=== PATIENT | female | born 1950 | race Caucasian/White ===

== ENCOUNTER 2025-08-31 06:50 | Outpatient (REF) | payer SELFPAY ==
[2025-08-31 05:43] LABS: MANUAL DIFF FLAG NO
[2025-08-31 06:02] LABS: Hematocrit 27.1 % (37.0-47.0); Hemoglobin 8.5 g/dl (12.0-16.0); Imm Gran Abs Auto 0.01 X10*3/uL (0.00-0.03); Imm Gran Pct Auto 0.2 % (0.0-0.4); Lymphocytes Absolute Auto 1.1 X10*3/uL (1.2-4.9); Mean Corpuscular HGB Conc 31.4 g/dl (31.0-35.0); Mean Corpuscular Hemoglobin 28.4 pg (27.0-33.0); Mean Corpuscular Volume 90.6 fL (80.0-98.0); NRBC Abs Auto 0.000 X10*3/uL (0.0-0.012); NRBC Pct Auto 0.0 /100WBC (0.0-0.2); Platelet Count 315 X10*3/uL (160-400); Red Blood Count 2.99 X10*6/uL (4.20-5.50); White Blood Count 6.5 X10*3/uL (4.8-10.8)
--- OUTSIDE RECORDS SUMMARY | 2025-08-31 06:53 | XMS_ITS ---
Author Organization [address] Address [address] [place] [phone] Phone Care Team Providers Care Plumber Cub Name Role Phone Vladimir Lucas Primary Care Provider [phone] Post Acute Care Coordination Status:Closed (Closed) Start date:08/27/2025 Enrollment date:08/27/2025 Enrollment reason:Post acute care coordination End date:08/28/2025 Close reason:Created in Error Continued Care and Services Coordination
--- OUTSIDE RECORDS SUMMARY | 2025-08-31 06:53 | XMS_ITS ---
Author Name [facility] Organization Unknown Care Team Organization Name Specialty Phone Email Start Date End Da te [facility] 06/03/2025 [facility] Vladimir Lucas Primary Care 03/23/2023 [facility] Vidal Peralta Primary Care 08/22/2022 024
--- OUTSIDE RECORDS SUMMARY | 2025-08-31 06:53 | XMS_ITS ---
Author Organization [address] Address [address] [place] [phone] Phone Care Team Providers Care Sales Product Specialist Name Role Phone Vladimir Lucas Primary Care Provider [phone] Post Acute Care Coordination Status:Ongoing (Active) Start date:08/28/2025 Enrollment date:08/28/2025 Enrollment reason:Post acute care coordination Case Team Name Relationship Phone Naty Cueto RN(Responsible Staff) Post Acute [employer] Continued Care and Services Coordination
--- OUTSIDE RECORDS SUMMARY | 2025-08-31 06:53 | XMS_ITS | Clinical Summary ---
Author Organization [facility] Address [address] [place] [address] Care Team Providers Care Magazine Hand Name Role Phone Vladimir Lucas PA-C Primary Care Provider Allergies Active Allergy Reactions Criticality Noted Date Comments Oxycodone 12/12/2018 Oxycodone-Acetaminophen 12/12/2018 Hydrocodone-Acetaminophen 12/12/2018 Medications Medication Sig Dispensed Refills Start Date End Date Status [place]-3 Fatty Acids (FISH OIL) 1000 MG CAPS Take 1,000 mg by mouth daily. 0 Active atorvastatin (LIPITOR) tablet 40 mg Take 40 mg by mouth daily. 0 Active diclofenac (VOLTAREN) 75 MG EC tablet Take 75 mg by mouth daily. 0 Active furosemide (LASIX) 40 MG tablet Take 40 mg by mouth daily. 0 Active gabapentin (NEURONTIN) 300 MG capsule Take 300 mg by mouth 2 (two) times a day. 0 Active metFORMIN (GLUCOPHAGE) tablet 1000 mg Take 1,000 mg by mouth 2 (two) times a day with meals. 0 Active metoprolol succinate (TOPROL-XL) 24 hr tablet 25 mg Take 25 mg by mouth 2 (two) times a day. 0 Active lisinopril (PRINIVIL,ZESTRIL) tablet 10 mg Take 10 mg by mouth daily. 0 Active aspirin 81 MG tablet Take 81 mg by mouth daily. 0 Active bimatoprost (LUMIGAN) 0.03 % ophthalmic drops 1 drop every night at bedtime. 0 Active docusate sodium (COLACE) 100 MG capsule Take 100 mg by mouth 2 (two) times a day. 0 Active CALCIUM CARBONATE-VITAMIN D PO Take by mouth daily. 0 Acti ve ferrous sulfate 325 (65 FE) MG tablet Take 325 mg by mouth every morning with breakfast. 0 Active vitamin C (ASCORBIC ACID) 500 MG tablet Take 500 mg by mouth daily. 0 Active glucose blood (ONETOUCH VERIO) test strip 1 each by Other route as needed for other. Use as instructed 0 Active Active Problems No known active problems Social History Tobacco Use Types Packs/Day Years Used Date Smoking Tobacco: Never Smokeless Tobacco: Never Alcohol Use Standard Drinks/Week Comments No 0 (1 standard drink = 0.6 oz pur e alcohol) Sex and Gender Information Value Date Recorded Sex Assigned at Not on file Gender Identity Not on file Sexual Orientation Not on file Job Start Date Occupation Industry Not on file Not on file Not on file Last Filed Vital Signs Vital Sign Reading Time Taken Comments Blood Pressure 154/56 01/21/2024 1:37 PM EDT Pulse 88 01/21/2024 1:37 PM EDT Temperature 36.1 C (97 F) 01/21/2024 1:37 PM EDT Respiratory Rate - - Oxygen Saturation 100% 01/21/2024 1:37 PM EDT Inhaled Oxygen Concentration - - Weight 105.5 kg (232 lb 9.6 oz) 019 11:19 AM EST Height - - Body Mass Index - - Plan of Treatment Health Maintenance Due Date Last Done Comments Hepatitis C Screening 1952 Depression Screening 1964 Preventative Health Evaluation 1970 Colon Cancer Screening (Colonoscopy) 1997 Breast Cancer Screening (Mammogram) 2002 Fall Risk Assessment 2017 Osteoporosis Screening (DEXA Scan) 2017 COVID-19 Vaccine ( season) 2025 01/25/2022, 07/21/2021, 06/21/2021, Additional history exists Influenza Vaccine (#1) 2025 3, 06/23/2022, 06/28/2021, Additional history exists DTap / Tdap / Td (2 - Td or Tdap) 07/13/2025 07/13/2015, 2003 RSV Adult > 60+ Yrs or (1 - 1-dose 75+ series) 2027 Shingrix-Zoster Vaccine Completed 04/27/2020, 11/19 Pneumococcal Vaccine Completed 08/03/2021, 08/06/2017, 12/03/2014 Hepatitis B Vaccines Aged Out No long er eligible based on patient's age to complete this topic RSV Ped < 20 months Aged Out No longe r eligible based on patient's age to complete this topic Care Teams Magazine Hand Relationship Specialty Start Date End Date Vladimir Lucas, PAVanceC PCP - General Medical Services 03/29/23
--- OUTSIDE RECORDS SUMMARY | 2025-08-31 06:53 | XMS_ITS | Clinical Summary ---
[facility] [address] [facility] Address [address] [place] [phone] Phone Care Team Providers Care Lockmaker Name Role Phone Vladimir Lucas Primary Care Provider [phone] Allergies Active Allergy Reactions Criticality Noted Date Comments Hydrocodone-Acetaminophen 12/12/2018 Oxycodone 12/12/2018 Oxycodone-Acetaminophen 12/12/2018 Medications aspirin 81 mg EC tablet Take 81 mg by mouth daily. Active bimatoprost (LUMIGAN) 0.03 % ophthalmic drops 1 drop every night at bedtime. Active calcium carbonate/vitamin D3 (CALCIUM CARBONATE-VITAMIN D PO) Take by mouth daily. Active docusate sodium (COLACE) 100 mg capsule Take 100 mg by mouth 2 (two) times a day. Active blood sugar diagnostic (OneTouch Verio test strips) test strip 1 each by Other route as needed for other. Use as instructed Active omega-3 fatty acids 1,000 mg capsule Take 1,000 mg by mouth daily. Active ascorbic acid (VITAMIN C) 500 mg CR tablet Take 500 mg by mouth daily. Active nystatin (MYCOSTATIN) 100,000 unit/gram powder Apply thin layer to affected area BID for 2 weeks then stop. 90 g 3 5 Active atorvastatin (LIPITOR) 40 mg tablet Take 1 tablet (40 mg total) by mouth at bedtime. 90 tablet 3 5 Active clopidogreL (PLAVIX) 75 mg tablet Take 1 tablet (75 mg total) by mouth 1 (one) time each day. 90 each 3 5 Active furosemide (LASIX) 40 mg tablet Take 1 tablet (40 mg total) by mouth 1 (one) time each day. 90 tablet 3 5 Active metFORMIN (GLUCOPHAGE) 1,000 mg tablet Take 1 tablet (1,000 mg total) by mouth 2 (two) times a day with meals. 360 tablet 3 5 Active gabapentin (NEURONTIN) 300 mg capsule Take 1 capsule (300 mg total) by mouth 3 (three) times a day. 270 each 3 5 Active metoprolol succinate (TOPROL-XL) 25 mg 24 hr tablet Take 1 tablet (25 mg total) by mouth 1 (one) time each day. Do not crush or chew. 90 tablet 3 5 Active semaglutide (Ozempic) 1 mg/dose (4 mg/3 mL) injection penIndications:Typ e II diabetes mellitus with neurological manifestations (CMS/HCC V24, CMS/HCC V28) Inject 1 mg under the skin every 7 (seven) days. 6 mL 1 5 Active nitroglycerin (NITROSTAT) 0.[address] 1 tablet (0.4 mg total) under the tongue every 5 (five) minutes if needed for chest pain. May repeat dose every 5 minutes for up to 3 doses total. 25 tablet 2 5 026 Active meclizine (ANTIVERT) 12.5 mg tablet TAKE 1 TABLET 3 TIMES A DAYAS NEEDED FOR DIZZINESS 270 tablet 5 Active Active Problems Problem Noted Date Diagnosed Date Coronary artery disease 07/02/2025 Overview (07/02/2025): 11/2024 patient underwent repeat cardiac cath which showed severe three-vessel st. croix coronary disease with patent DE LEON to LAD. The vein graft to the distal RCA was 80% stenotic but this was a small vessel. The vein graft OM1 was totally occluded and thought to be the possible culprit. Interestingly the graft to OM 2 was open. Regardless, intervention was deemed too complex unlikely to be a great benefit so she was continued on medical management. She was started on dual antiplatelet therapy and continued high-dose statin among other things. Assessment & Plan (07/02/2025 9:10 AM EDT): No new or worsening anginal signs. I am going to update an echocardiogram to reevaluate LVEF. Going to renew her nitroglycerin. She has been on dual antiplatelet therapy and should be until 11/2025. She is utilizing the baby aspirin and the Plavix. Continue with the metoprolol 25 mg p.o. daily. As well as the 40 mg of atorvastatin. Instructed to call 911 or go to the emergency room should the patient begin to experience chest pain or pressure lasting greater than 10 minutes does not resolve with rest. Nonrheumatic aortic valve stenosis 01/28/2025 HFrEF (heart failure with re duced ejection fraction) ([facility] V24, [facility] V28) 01/17/2023 Overview (07/02/2025): -In the setting of ischemic myopathy -Had complete recovery of function very soon after revascularization and it has remained in the normal range Last Assessment & Plan: Assessment & Plan (07/02/2025 9:11 AM EDT): Patient should continue to limit sodium consumption. She check her weights daily. Utilizing furosemide 40 mg p.o. daily in addition to metoprolol succinate 25 mg p.o. daily. Reach out if you gain more than 2 pounds in a day or 5 pounds in a week. MGUS (monoclonal gammopathy of unknown significa nce) 01/10/2023 Status post total left knee replacement 06/23/20 22 Hx of CABG 01/17/2022 CKD (chronic kidney disease) stage 3, GFR 30-59 ml/min ([facility] V24, [facility] V28) 03/11/2020 Osteopenia 09/18/2017 Overview (12/24/2024): 09/30 T score spine +2.5 hip -1.7 FRAX score 12% 10 year fracture risk Anemia 02/07/2017 Microalbuminuria 09/11/2016 Obesity 09/11/2016 Type II diabetes mellitus wi th renal manifestations ([facility] V24, [facility] V28) 09/11/2016 Carpal tunnel syndrome, bilateral 08/21/2016 Overview (12/24/2024): EMG 07/17/15 mild to moderate left and right GERD (gastroesophageal reflux disease) 6 Overview (12/24/2024): EGD mild chronic duodenitis Hypokalemia 08/21/2016 Osteoarthritis of knees, bilateral 08/21/2016 Chronic low back pain 08/21/2016 HTN (hypertension) 12/28/2011 Overview (01/28/2025): -24-hour ambulatory blood pressure monitor in February 2019 showed 24-hour average blood pressure 154/61, pulse 62, daytime average of 157/62 with pulse 64, nighttime average of 146/58 with pulse 57 -When she was presented with this information indicating that she had true hypertension as opposed to whitecoat hypertension, she was still reluctant to make changes, however thereafter, she did have improved blood pressure control Assessment & Plan (07/02/2025 11:13 AM EDT): Controlled on the metoprolol 25 mg p.o. daily and the furosemide 40 mg p.o. daily. Please keep blood pressures at home and reach out if they are consistently outside of normal limits. Educated on the importance of diet lifestyle to help further assist in reducing blood pressure. The patient was encouraged to follow low-salt low-fat diet, make purposeful strides towards weight loss, and engage in routine aerobic exercise as tolerated. Hyperlipidemia 12/28/2011 Overview (12/24/2024): Last Assessment & Plan: Continue current atorvastatin. Assessment & Plan (07/02/2025 11:14 AM EDT): Patient does have history of coronary artery disease, LDL should be below 70. Lipid panel from 6 months prior revealed LDL of 51. Continue current medication regiment. She is utilizing atorvastatin 40 mg p.o. daily. Old MD (myocardial infarction) 12/28/2011 Overview (01/28/2025): -CABG in 2011 with DE LEON to the LAD, vein graft to the OM1, vein graft to the OM 2, vein graft to the RCA -Echocardiogram at the time showed an EF of 35% -Most recent echocardiogram in 12/2024 showing normal left ventricular cavity size, wall thickness, and systolic function, normal regional wall motion with an ejection fraction of 60 to 65%, grossly normal RV systolic function, moderate aortic stenosis-DI 0.37, MILADYS 1.3cm2, mean gradient 20mmHg - Patient presented with non-ST elevation MD with symptoms of chest pain to [facility] in November 2024 - Cardiac cath at the time showed severe three-vessel st. croix disease, 80% disease in the vein graft to a distal RCA which was a small vessel, totally occluded vein graft to the OM1 with open jump graft to the OM 2, patent DE LEON to the LAD-medically managed due to complexity of graft disease with minimal deemed benefit Last Assessment & Plan: No recurrent anginal symptoms, euvolemic on exam. Continue current metoprolol, atorvastatin, aspirin. Type II diabetes mellitus wi th neurological manifestations ([facility] V24, [facility] V28) 12/28/2011 Glaucoma 12/28/2011 Encounters Date Type Department Care Team Description 07/02/2025 Telephone [facility] [address] [place] [address] Rickie Saleh NP 2025 1:10 PM EDT Office Visit [facility] [address] [place] [address] Rickie Saleh NP Primary hypertension (Primary Dx); HFrEF (heart failure with reduced ejection fraction) ([facility] V24, [facility] V28); Other hyperlipidemia; Coronary artery disease, unspecified vessel or lesion type, unspecified whether angina present, unspecified whether st. croix or transplanted heart from Last 3 Months Immunizations Immunization Administration Dates Next Due Pfizer SARS-CoV-2 COVID-19, mRNA, LNP-S, preservative free 01/19/2021,12/29/2020 Surgical History Surgery Date Site/Laterality Comments NECK SURGERY 10/15/2015 PROCEDURE: HISTORICAL NECK SURGERY; COMMENT: 3 level cervical fusion BACK SURGERY PROCEDURE: HISTORICAL BACK SURGERY; COMMENT: lumbar laminectomy SHOULDER SURGERY 10/15/2004 Right PROCEDURE: HISTORICAL SHOULDER SURGERY CORONARY ARTERY BYPASS GRAFT 10/15/2011 PROCEDURE: HISTORICAL CABG UPPER GASTROINTESTINAL ENDOSCOPY 10/15/2008 PROCEDURE: UPPER GI ENDOSCOPY/EXAM COLONOSCOPY 05/26/2014 PROCEDURE: HISTORICAL COLONOSCOPY OTHER SURGICAL HISTORY 11/08/10 06/17/13 PROCEDURE: OUTSIDE PAP SMEAR TOTAL KNEE ARTHROPLASTY 05/16/2022 Left PROCEDURE: AL ARTHRP KNE CONDYLE&PLATU MEDIAL&LAT COMPARTMENTS; COMMENT: TKR dr. rodriguez CARDIAC CATHETERIZATION DONE ON 12/09/2024 AT [facility] INDICATIONS:NSTEMI Medical History Medical History Date Comments Osteopenia 09/18/2017 DX:Osteopenia Anemia DX:Anemia GERD (gastroesophageal reflux disease) DX:GERD (gastroesophageal reflux disease) Diabetes mellitus (CMS/HCC V 24, CMS/HCC V28) DX:Diabetes mellitus (HCC) Hypokalemia 08/21/2016 DX:Hypokalemia Osteoarthritis of both knees 08/21/2016 DX: Osteoarthritis of both knees Hypertension DX:Hypertension Hyperlipidemia 12/28/2011 DX:Hyperlipidemi a Glaucoma 12/28/2011 DX:Glaucoma Old myocardial infarction 12/28/2011 DX:Old myocardial infarction Carpal tunnel syndrome, bilateral 08/21/2016 DX:Carpal tunnel syndrome, bilateral Chronic low back pain 08/21/2016 DX:Chronic low back pain HTN (hypertension) 12/28/2011 DX:HTN (hyper tension) Old MD (myocardial infarction) 12/28/2011 D X:Old MD (myocardial infarction) Hyperlipidemia 12/28/2011 DX:Hyperlipidemi a Glaucoma 12/28/2011 DX:Glaucoma GERD (gastroesophageal reflux disease) 08/21/2016 DX:GERD (gastroesophageal reflux disease) Hypokalemia 08/21/2016 DX:Hypokalemia Osteoarthritis of knees, bilateral 08/21/2016 DX:Osteoarthritis of knees, bilateral Carpal tunnel syndrome, bilateral 08/21/2016 DX:Carpal tunnel syndrome, bilateral; COMMENT: EMG 07/17/15 mild to moderate left and right Chronic low back pain 08/21/2016 DX:Chronic low back pain Controlled type 2 diabetes m ellitus with neurological manifestations (CMS/HCC V24, CMS/HCC V28) 12/28/2011 DX:Controlled type 2 diabet es mellitus with neurological manifestations (HCC) Morbid obesity (CMS/HCC V24, CMS/HCC V28) 09/11/2016 DX:Morbid obesity (HCC) Microalbuminuria 09/11/2016 DX:Microalbumin uria DM (diabetes mellitus), type 2 with renal complications ([facility] V24, CMS/[facility] V28) 09/11/2016 DX:DM (diabetes mellitus), t ype 2 with renal complications ([facility]) Anemia 02/07/2017 DX:Anemia Osteopenia 09/18/2017 DX:Osteopenia; C OMMENT: 09/30 T score spine +2.5 hip -1.7 FRAX score 12% 10 year fracture risk Family History Medical History Relation Name Comments Colon polyps Brother 1 Diabetes Brother 2 CAD , Coronary artery disease Father Other: stomach cancer Mother CAD Relation Name Status Comments Brother 1 Brother 2 Brother 3 Father Mother Social History Tobacco Use Types Packs/Day Years Used Date Smoking Tobacco: Never Smokeless Tobacco: Never Tobacco Cessation:Counseling Given: Not Answered Alcohol Use Standard Drinks/Week Comments No 0 (1 standard drink = 0.6 oz pur e alcohol) Housing Instability Answer Date Recorde d Are you worried that in the next 2 months you may not have stable housing? No 05/05/2025 Food Access & Nutrition Answer Date Rec orded Do you have access to a vari ety of food including fruits and vegetables? Yes 05/05/2025 Access to Healthcare Answer Date Record ed Within the last 3 months, ho w many times did you visit the emergency department for your medical care? 0 05/05/2025 Health Literacy Answer Date Recorded How often do you need to hav e someone help you when you read instructions, pamphlets, or other written material from your doctor or pharmacy? Never 05/05/2025 Caregiver: How often do you need to have someone help you when you read instructions, pamphlets, or other written material from your doctor or pharmacy? Not on file 05/05/2025 Financial Risk Answer Date Recorded How hard is it for you to pa y for the very basics like food, housing, medical care, and air conditioning / heating? Not very hard 05/05/2025 Transportation Answer Date Recorded Has the lack of transportati on kept you from meetings, work, or from getting things needed for daily living? No Has the lack of transportati on kept you from medical appointments or from getting medications? No 05/05/2025 Social Isolation Answer Date Recorded How often do you feel lonely or isolated from th ose around you? Never 05/05/2025 Food Risk Answer Date Recorded Within the past 12 months we worried whether our food would run out before we got money to buy more. Never true 05/05/2025 Within the past 12 months th e food we bought just didn't last and we didn't have money to get more. Never true 05/05/2025 Dependent Care Answer Date Recorded Do you need help finding or paying for care for your loved ones. For example, director of early childhood education or elderly care for an older adult? No 05/05/2025 Education Answer Date Recorded Do you think completing more education or training, like finishing a GED, going to college, or learning a trade, would be helpful for you? N/A 05/05/2025 Employment and Income Answer Date Recor ded During the last four weeks, have you been actively looking for work? No 05/05/2025 Living Situation Answer Date Recorded What is your living situation? Unrecognized valu e 05/05/2025 Comments No Sex and Gender Information Value Date Recorded Sex Assigned at Not on file Legal Sex Female 2:02 AM EST Gender Identity Not on file Sexual Orientation Not on file Obstetrics History Last Filed Vital Signs Vital Sign Reading Time Taken Comments Blood Pressure 125/59 01/30/2025 12:18 PM EDT Pulse 90 2025 1:14 PM EDT Temperature 36.2 C (97.1 F) 01/30/2025 12:18 PM EDT Respiratory Rate 13 01/30/2025 12:18 PM EDT Oxygen Saturation 100% 01/28/2025 1:03 PM EDT Inhaled Oxygen Concentration - - Weight 91.2 kg (201 lb) 2025 1:14 PM EDT Height 154.9 cm (5' 1 ) 2025 1:14 PM EDT Body Mass Index 37.98 2025 1:14 PM EDT Plan of Treatment Upcoming Encounters Date Type Department Care Team (Late st Contact Info) Description 12/28/2025 10:00 AM EDT Ancillary Procedure [facility] [address] [place] [address] 01/07/2026 1:00 PM EDT Office Visit [facility]ology On[facility] [address] [place] [phone] Hannah Stevens MD [address] [place] [address] Health Maintenance Due Date Last Done Comments Hepatitis C Screening 09/21/2022 Medicare Annual Wellness Visit 09/21/2022 COVID-19 Vaccine ( season) 2025 07/17/2024, 07/16/2023, 08/03/2022, Additional history exists Influenza Vaccine (#1) 2025 , 07/16/2023, 06/23/2022, Additional history exists Diabetes: Blood Sugar Control Test (HGBA1C) 07/10/2025 01/07/2025, 07/17/2024 DTaP,Tdap,and Td Vaccines (3 - Td or Tdap) 07/13/2025 07/13/2015, 2003 Diabetes: Annual Urine Albumin-Creatinine Ratio (uACR) 01/07/2026 01/07/2025 Diabetes: Annual GFR (Glomerular Filtration Rate) 01/07/2026 01/07/2025, 07/17/2024 Hypertension/CHF/CAD Annual BMP Blood Test 01/07/2026 01/07/2025, 07/17/2024 Diabetes: Annual Foot Exam 01/22/2026 01/22/2025 Diabetes: Annual Retina Eye Exam 01/30/2026 01/30/2025 Falls Risk Assessment 01/30/2026 01/30/2025 Social Influencers of Health Screening 05/05/2026 05/05/2025 Breast Cancer Screening 07/23/2026 07/23/2024 Colorectal Cancer Screening: FIT-DNA (Cologuard) 08/18/2027 08/18/2024 Cholesterol Screening (Lipid Panel) 01/07/2030 01/07/2025, 07/17/2024 Osteoporosis Screening (Bone Density Screening) 09/19/2033 09/19/2023, 09/18/2017 Zoster Vaccines Completed 04/27/2020, 02/2020, 11/28/2011 Pneumococcal Vaccine: 50+ Years Completed 08/03/2021, 08/06/2017, 12/03/2014 RSV Immunization Adult Patients Completed 07/16/2023 Depression Screening Completed 12/17/2024 HIB Vaccines Aged Out No longer eligi ble based on patient's age to complete this topic HPV Vaccines Aged Out No longer eligi ble based on patient's age to complete this topic Hepatitis A Vaccines Aged Out No long er eligible based on patient's age to complete this topic Hepatitis B Vaccines Aged Out No long er eligible based on patient's age to complete this topic IPV Vaccines Aged Out No longer eligi ble based on patient's age to complete this topic MMR Vaccines Aged Out No longer eligi ble based on patient's age to complete this topic Meningococcal ACWY Vaccine Aged Out N o longer eligible based on patient's age to complete this topic Meningococcal B Vaccine Aged Out No l onger eligible based on patient's age to complete this topic RSV Immunization Patients Under 20 months Aged Out No longer eligible based on patient's age to complete this topic Varicella Vaccines Aged Out No longer eligible based on patient's age to complete this topic Goals Goal Patient Goal Type Associated Problems Recent Progress Patient-Stated? Author Patient and Caregiver Understand Wound Care Education General No Brigida Hernandez, URMILA Note: Pt to report any signs of wound infection, a po temp of >100.4, increase in pain or drainage from right groin wound. Procedures Procedure Name Priority Date/Time Associated Diagnosis Comments ECG 12-LEAD Routine 2025 1:41 PM EDT Primary hypertension ECG 12-LEAD Routine 2025 1:28 PM EDT Primary hypertension MICROALBUMIN CREATININE URINE RATIO Routine 01/07/2025 12:10 PM EDT Hospital discharge follow-up NSTEMI (non-ST elevated myocardial infarction) (CMS/HCC V24, CMS/HCC V28) Stage 3 chronic kidney disease, unspecified whether stage 3a or 3b CKD (CMS/HCC V24, CMS/HCC V28) HFrEF (heart failure with reduced ejection fraction) (CMS/HCC V24, CMS/HCC V28) Anemia, unspecified type COMPREHENSIVE METABOLIC PANEL Routine 01/07/2025 12:10 PM EDT Monoclonal paraproteinemia Anemia, unspecified HEMOGLOBIN A1C Routine 01/07/2025 12:10 PM EDT Hospital discharge follow-up NSTEMI (non-ST elevated myocardial infarction) ([facility] V24, [facility] V28) Stage 3 chronic kidney disease, unspecified whether stage 3a or 3b CKD ([facility] V24, CMS/[facility] V28) HFrEF (heart failure with reduced ejection fraction) ([facility] V24, [facility] V28) Anemia, unspecified type Diabetes mellitus due to underlying condition with chronic kidney disease, without long-term current use of insulin, unspecified CKD stage (CMS/[facility] V24, CMS/[facility] V28) LIPID PANEL WITH REFLEX TO DIRECT LDL Routine 01/07/2025 12:10 PM EDT Hospital discharge follow-up NSTEMI (non-ST elevated myocardial infarction) ([facility] V24, [facility] V28) Stage 3 chronic kidney disease, unspecified whether stage 3a or 3b CKD ([facility] V24, [facility] V28) HFrEF (heart failure with reduced ejection fraction) ([facility] V24, [facility] V28) Anemia, unspecified type EXTERNAL COLOGUARD (FIT-DNA) REPORT 08/18/2024 DXA BONE DENSITY STUDY 1+ SITS AXIAL SKEL Routine 09/19/2023 1:35 PM EST Monoclonal gammopathy Presence of left artificial knee joint Atherosclerotic heart disease of [place] coronary artery without angina pectoris Other specified disorders of bone density and structure, unspecified site Chronic kidney disease, stage 3 unspecified ([facility] V24, [facility] V28) Chronic kidney disease, unspecified Anemia in chronic kidney disease (CODE) Type 2 diabetes mellitus with diabetic nephropathy ([facility] V24, [facility] V28) Type 2 diabetes mellitus with other diabetic neurological complication (CMS/[facility] V24, CMS/[facility] V28) Mixed hyperlipidemia Essential (primary) hypertension Hypokalemia from Last 3 Months or Most Recently Relevant to Health Maintenance Results * ECG 12 lead (2025 1:41 PM EDT) Only the most recent of2 resultswithin the time period is included. Ventricular Rate ECG 106 BPM GEMUSE Atrial Rate 106 BPM GEMUSE QRS Duration 74 ms GEMUSE Q-T Interval 340 ms GEMUSE QTc 451 ms GEMUSE R [place] -25 degrees GEMUSE T [place] 44 degrees GEMUSE ECG Interpretation Sinus tachycardia with 1st degree A-V block Anterolateral infarct (cited on or before 05-JAN-2025) When compared with ECG of 05-JAN-2025 13:26, Premature atrial complexes are no longer Present AL interval has decreased Confirmed by MANN DANIELLE ([id number]) on 07/19/2025 9:38:59 PM GEMUSE 2025 1:41 PM EDT 07/19/2025 9:38 PM EDT us Rickie Saleh NP ECG ORDERABLES Final Result GEMUSE * Lipid panel with reflex to direct LDL (01/07/2025 12:10 PM EDT) Pathologist [facility] Cholesterol 125 0 - 200 mg/dL LAB CHEMISTRY METHOD 01/07/2025 4:30 PM EDT [facility] Triglycerides 124 0 - 150 mg/dL LAB CHEMISTRY METHOD 01/07/2025 4:30 PM EDT [facility] HDL 49 >=40 mg/dL LAB CHEMISTRY METHOD 01/07/2025 4:30 PM EDT [facility] LDL Calculated 51 0 - 100 mg/dL LAB CHEMISTRY METHOD 01/07/2025 4:30 PM EDT [facility] VLDL Cholesterol Luís 24.8 mg/dL LAB CHEMISTRY METHOD 01/07/2025 4:30 PM EDT [facility] Non HDL Chol. (LDL+VLDL) 76 <145 mg/dL LAB CHEMISTRY METHOD 01/07/2025 4:30 PM EDT [facility] Chol/HDL Ratio 2.6 0.0 - 4.4 LAB CHEMISTRY METHOD 01/07/2025 4:30 PM EDT [facility] [facility] Blood Venous blood specimen / Unknown Venipuncture / Unknown 01/07/2025 12:10 PM EDT 01/07/2025 12:10 PM EDT Vladimir WEAVER LAB BLOOD ORDERABLES Shira l Result Performing Organization Address [facility]/ZIP Co de Phone Number [facility] [address] [place] [address], * (ABNORMAL) Microalbumin creatinine urine ratio (01/07/2025 12:10 PM EDT) Creatinine, Urine 22.0 mg/dL LAB CHEMISTRY METHOD 01/07/2025 4:18 PM EDT [facility] Microalb, Ur 26.3 0.0 - 29.0 mg/L LAB CHEMISTRY METHOD 01/07/2025 4:18 PM EDT [facility] Microalb/Creat Ratio 120(H) <30 mg/g creat LAB CHEMISTRY METHOD 01/07/2025 4:18 PM EDT [facility] Urine Urine specimen obtained by clean catch procedure / Unknown Non-blood Collection / Unknown 01/07/2025 12:10 PM EDT 01/07/2025 12:10 PM EDT Vladimir WEAVER LAB URINE ORDERABLES Shira l Result Performing Organization Address City/[facility]/ZIP Co de Phone Number [facility] [address] [place] [address], [place] [phone] * Hemoglobin A1c (01/07/2025 12:10 PM EDT) Hemoglobin A1C 5.6 <6.5 % LAB CHEMISTRY METHOD 01/07/2025 8:05 PM EDT [facility] Mean Bld Glu Estim. 114 mg/dL LAB CHEMISTRY METHOD 01/07/2025 8:05 PM EDT [facility] Blood Venous blood specimen / Unknown Venipuncture / Unknown 01/07/2025 12:10 PM EDT 01/07/2025 12:10 PM EDT Vladimir WEAVER LAB BLOOD ORDERABLES Shira daniela Result [facility] [address] [place] [address], * (ABNORMAL) Comprehensive metabolic panel (01/07/2025 12:10 PM EDT) Sodium 137 133 - 145 mmol/L LAB CHEMISTRY METHOD 01/07/2025 4:30 PM [facility] Potassium 4.1 3.5 - 5.5 mmol/L LAB CHEMISTRY METHOD 01/07/2025 4:30 PM [facility] Chloride 101 96 - 110 mmol/L LAB CHEMISTRY METHOD 01/07/2025 4:30 PM [facility] CO2 29 21 - 32 mmol/L LAB CHEMISTRY METHOD 01/07/2025 4:30 PM [facility] Anion Gap 7 3 - 11 LAB CHEMISTRY METHOD 01/07/2025 4:30 PM [facility] Glucose 95 70 - 100 mg/dL LAB CHEMISTRY METHOD 01/07/2025 4:30 PM [facility] BUN 26(H) 5 - 25 mg/dL LAB CHEMISTRY METHOD 01/07/2025 4:30 PM [facility] Creatinine 1.10 0.50 - 1.10 mg/dL LAB CHEMISTRY METHOD 01/07/2025 4:30 PM [facility] eGFR 53(L) >=60 mL/min/1. 73m2 LAB CHEMISTRY METHOD 01/07/2025 4:30 PM [facility] Comment:Calculation based on the Chronic Kidney Disease Epidemiology Collaboration (CKD-EPI) equation refit without adjustment for race. BUN/Creatinine Ratio 23.6 LAB CHEMISTRY METHOD 01/07/2025 4:30 PM EDT [facility] Calcium 9.7 8.5 - 10.5 mg/dL LAB CHEMISTRY METHOD 01/07/2025 4:30 PM EDT [facility] AST (SGOT) 14 10 - 42 unit/L LAB CHEMISTRY METHOD 01/07/2025 4:30 PM EDT [facility] ALT (SGPT) 14 10 - 60 unit/L LAB CHEMISTRY METHOD 01/07/2025 4:30 PM EDT [facility] Alkaline Phosphatase 107 42 - 121 unit/L LAB CHEMISTRY METHOD 01/07/2025 4:[facility] Total Protein 8.5(H) 6.0 - 8.0 g/dL LAB CHEMISTRY METHOD 01/07/2025 4:30 PM [facility] Albumin 4.0 3.2 - 5.0 g/dL LAB CHEMISTRY METHOD 01/07/2025 4:30 PM EDT [facility] Total Bilirubin 0.5 0.0 - 1.4 mg/dL LAB CHEMISTRY METHOD 01/07/2025 4:30 PM [facility] Blood Venous blood specimen / Unknown Venipuncture / Unknown 01/07/2025 12:10 PM EDT 01/07/2025 12:10 PM EDT us Hannah Stevens MD LAB BLOOD ORDERABLES Final R esult [facility] [address] [place] [address], * External Cologuard (FIT-DNA) Report (08/18/2024) us Provider Onbase LAB BODY FLUIDS AND STOOLS OR DERABLES Final Result * DXA BONE DENSITY STUDY 1+ SITS AXIAL SKEL (09/19/2023 1:35 PM EST) Anatomical Region Laterality Modality Bone Densitometr y 01/10/2023 1:49 PM EDT Narrative 09/20/2023 8:29 PM EST STUDY: DUAL ENERGY X-RAY ABSORPTIOMETRY / DXA REASON FOR EXAM: Female, 73 years old menopausal/postmenopausal disorder TECHNIQUE: Bone Mineral Density (BMD) measurements of the lumbar spine and left hip were obtained using [employer] Discovery W (S/N [id number]). COMPARISON: September 18, 2017 FINDINGS: L1-L4 BMD: 1.175 g/cm2 L1-L4 T score: 1.2. This corresponds to Normal bone density. This represents a -11.2* % decrease in bone density compared with prior exam from September 18, 2017. Left femoral neck BMD: 0.697 g/cm2 Left femoral neck T score: -1.4. This corresponds to osteopenia. Left total hip BMD: 0.915 g/cm2 Left total hip T score: -0.2. This corresponds to Normal bone density. This represents a -3.0* % decrease in bone density compared with prior exam from September 18, 2017. * - Indicates a statistically significant change. FRAX score: 10 year risk of major osteoporotic fracture 13%, 10 year risk of hip fracture 1.6% IMPRESSION: IMPRESSION: Osteopenia Reference Information: The T-score is the number of standard deviations above or below the standard which is normal for young adults at their peak bone mineral density. The World Health Organization (WHO) interprets the T-scores as follows: At or above -1 SD Normal bone density Between -1 and -2.5 SD Osteopenia At or below -2.5 SD Osteoporosis Procedure Note Doyle Loomis MD - 11/19/2023 STUDY: DUAL ENERGY X-RAY ABSORPTIOMETRY / DXA REASON FOR EXAM: Female, 73 years old menopausal/postmenopausaldisorder TECHNIQUE: Bone Mineral Density (BMD) measurements of the lumbar spineand left hip were obtained using [employer] Discovery W (S/N [id number]). COMPARISON: September 18, 2017 FINDINGS: L1-L4 BMD: 1.175 g/cm2 L1-L4 T score: 1.2. This corresponds to Normal bone density. This represents a -11.2* % decrease in bone density compared with priorexam from September 18, 2017. Left femoral neck BMD: 0.697 g/cm2 Left femoral neck T score: -1.4. This corresponds to osteopenia. Left total hip BMD: 0.915 g/cm2 Left total hip T score: -0.2. This corresponds to Normal bone density. This represents a -3.0* % decrease in bone density compared with priorexam from September 18, 2017. * - Indicates a statistically significant change. FRAX score: 10 year risk of major osteoporotic fracture 13%, 10 year riskof hip fracture 1.6% IMPRESSION: IMPRESSION: Osteopenia Reference Information: The T-score is the number of standard deviations above or below thestandard which is normal for young adults at their peak bone mineral density. The World HealthOrganization (WHO) interprets the T-scores as follows: At or above -1 SD Normal bone density Between -1 and -2.5 SD Osteopenia At or below -2.5 SD Osteoporosis Vladimir WEAVER [facility] [place] Final Result from Last 3 Months or Most Recently Relevant to Health Maintenance Insurance MEDICARE [facility] Care Teams Lockmaker Relationship Specialty Start Date End Date Vladimir Lucas PA [address] [place] [address] PCP - General Internal Medicine 01/01/25
[2025-08-31 07:09] LABS: Anion Gap 14 (12-20); Blood Urea Nitrogen 18 mg/dL (9-16); Calcium 8.8 mg/dL (8.4-10.2); Carbon Dioxide 25 mmol/L (22-29); Chloride 105 mmol/L (96-108); Estimated Glomerular Filt Rate > 60; Sodium 141 mmol/L (135-145)
[2025-08-31 07:15] LABS: Potassium 2.8 mmol/L (3.3-5.1)
== END 2025-08-31 06:51 | disposition home or self-care (01) ==
LOC: HO.MMNH1L 06:50
PROVIDERS: Visit Provider Physician Assistant Medical
DX: I10 Essential (primary) hypertension (principal); N39.0 Urinary tract infection, site not specified; E11.9 Type 2 diabetes mellitus without complications
CPT/HCPCS: 36415; 80048; 85025

== ENCOUNTER 2025-09-28 09:23 | Outpatient (REF) | payer SELFPAY ==
[2025-09-28 07:51] LABS: MANUAL DIFF FLAG NO
[2025-09-28 08:06] LABS: Hematocrit 27.3 % (37.0-47.0); Hemoglobin 8.3 g/dl (12.0-16.0); Imm Gran Abs Auto 0.02 X10*3/uL (0.00-0.03); Imm Gran Pct Auto 0.3 % (0.0-0.4); Lymphocytes Absolute Auto 1.1 X10*3/uL (1.2-4.9); Mean Corpuscular HGB Conc 30.4 g/dl (31.0-35.0); Mean Corpuscular Hemoglobin 28.4 pg (27.0-33.0); Mean Corpuscular Volume 93.5 fL (80.0-98.0); NRBC Abs Auto 0.000 X10*3/uL (0.0-0.012); NRBC Pct Auto 0.0 /100WBC (0.0-0.2); Platelet Count 311 X10*3/uL (160-400); Red Blood Count 2.92 X10*6/uL (4.20-5.50); White Blood Count 6.1 X10*3/uL (4.8-10.8)
[2025-09-28 08:39] LABS: Anion Gap 14 (12-20); Blood Urea Nitrogen 25 mg/dL (9-16); Calcium 9.1 mg/dL (8.4-10.2); Carbon Dioxide 25 mmol/L (22-29); Chloride 106 mmol/L (96-108); Estimated Glomerular Filt Rate > 60; Potassium 3.6 mmol/L (3.3-5.1); Sodium 141 mmol/L (135-145)
== END 2025-09-28 09:24 | disposition home or self-care (01) ==
LOC: HO.MMNH1L 09:23
PROVIDERS: Visit Provider Physician Assistant Medical
DX: I10 Essential (primary) hypertension (principal); E11.9 Type 2 diabetes mellitus without complications
CPT/HCPCS: 36415; 80048; 85025